=== PATIENT | male | born 1980 | race Caucasian/White ===

== ENCOUNTER 2021-08-15 14:37 | Emergency (ER) | payer MEDICARE, OTHER ==
[~2021-08-15] VITALS: Ht 180.3 cm; Wt 113.4 kg
[2021-08-15] MEDS ORDERED: SEROQUEL300 MG PO (16:00)
[2021-08-15] MEDS ORDERED: SEROQUEL100 MG PO (16:00)
[2021-08-15] MEDS ORDERED: TRAZODONE HCL100 MG PO (16:01)
[2021-08-15] MEDS ORDERED: MINIPRESS5 MG PO (16:01)
[2021-08-15] MEDS ORDERED: OXCARBAZEPINE300 MG PO (16:04)
[2021-08-15] MEDS ORDERED: OXCARBAZEPINE600 MG PO (16:04)
[2021-08-15] MEDS ORDERED: CHLORDIAZEPOXID25 MG PO (16:33)
--- OUTSIDE RECORDS SUMMARY | 2021-08-15 18:26 | XMS ---
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 Care Guidelines exist for the following facilities: [facility] ( 11/28/2018 ) [place] VISIT COUNT (12 MO.) 1 [facility] 1 [facility] [place] TOTAL 2 NOTE: Visits indicate total known visits. ED/UCC VISIT TRACKING (12 MO.) 08/15/2021 14:38 [facility] [place] TYPE: Emergency COMPLAINT: - WITHDRAWALS, MEDICATION REFILL 08/04/2021 08:09 [facility] [place] TYPE: Emergency DIAGNOSES: - Ankle Pain - LEFT ANKLE PAIN - Sprain of unspecified ligament of left ankle, initial encounter - Unspecified fall, initial encounter - Alcohol dependence with withdrawal, unspecified - Moderate persistent asthma with (acute) exacerbation INPATIENT VISIT TRACKING (12 MO.) No inpatient visits to display in this time frame [email or web address]
== END 2021-08-15 17:21 | disposition home or self-care (01) ==
LOC: ED 14:37
DX: F10.239 Alcohol dependence with withdrawal, unspecified (principal); J45.909 Unspecified asthma, uncomplicated; Z88.0 Allergy status to penicillin; Z79.899 Other long term (current) drug therapy
CPT/HCPCS: 96374; 99284-25; J2060

== ENCOUNTER 2021-11-06 10:08 | Emergency (ER) | payer MEDICARE, OTHER ==
[~2021-11-06] VITALS: Ht 180.3 cm; Wt 117.2 kg
[~2021-11-06 10:08] MED LIST: AMOXICILLIN500 MG PO; CHLORDIAZEPOXID25 MG PO; CRUTCHES XX; DIAZEPAM5 MG PO; GABAPENTIN100 MG PO; IBU600 MG PO; MINIPRESS5 MG PO; OXCARBAZEPINE300 MG PO; OXCARBAZEPINE600 MG PO; SEROQUEL100 MG PO; SEROQUEL300 MG PO; TRAZODONE HCL100 MG PO
--- OUTSIDE RECORDS SUMMARY | 2021-11-06 10:10 | XMS ---
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 Care Guidelines exist for the following facilities: [facility] ( 11/28/2018 ) [place] VISIT COUNT (12 MO.) [address] [facility] [address] [place] [address] TOTAL 5 NOTE: Visits indicate total known visits. ED/UCC VISIT TRACKING (12 MO.) 11/06/2021 10:09 [facility] [place] TYPE: Emergency COMPLAINT: - SOB, WHEEZY 11/03/2021 10:23 [facility] [place] TYPE: Emergency COMPLAINT: - L KNEE PAIN 09/06/2021 20:33 [facility] [place] TYPE: Emergency COMPLAINT: - ANKLE INJURY DIAGNOSES: - Other and unspecified overexertion or strenuous movements or postures, initial encounter - Other intermediate (current) drug therapy - Post-traumatic stress disorder, unspecified - Unspecified asthma, uncomplicated - Pain in left ankle and joints of left foot - Sprain of unspecified ligament of left ankle, initial encounter - Allergy status to penicillin 08/15/2021 14:38 [facility] [place] TYPE: Emergency COMPLAINT: - WITHDRAWALS, MEDICATION REFILL DIAGNOSES: - 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 - Alcohol dependence with withdrawal, unspecified - Allergy status to penicillin - Unspecified asthma, uncomplicated 08/04/2021 08:09 [facility] [place] TYPE: Emergency DIAGNOSES: - Sprain of unspecified ligament of left ankle, initial encounter - Ankle Pain - Moderate persistent asthma with (acute) exacerbation - Unspecified fall, initial encounter - LEFT ANKLE PAIN - Alcohol dependence with withdrawal, unspecified INPATIENT VISIT TRACKING (12 MO.) No inpatient visits to display in this time frame [email or web address]
[2021-11-06] MEDS ORDERED: DOXYCYCLINE HY100 MG PO (11:31)
[2021-11-06] MEDS ORDERED: PREDNISONE20 MG PO (11:31)
--- NOTE | 2021-11-07 09:52 | EKG ---
[facility] [address] [place], [place] [address] Signed Normal sinus rhythm Normal ECG No previous ECGs available Confirmed by OKSANA DURON MD ([id number]) on 11/07/2021 9:52:41 AM Electronically Signed By: OKSANA DURON MD 11/07/21 0952 PATIENT NAME: MARTA STEVENS Electrocardiogram DATE OF : 76 PHYSICIAN: OKSANA DURON MD REPORT #: [id number] REPORT IS CONFIDENTIAL AND NOT TO BE RELEASED WITHOUT AUTHORIZATION
== END 2021-11-06 11:47 | disposition home or self-care (01) ==
LOC: ED 10:08
DX: J45.901 Unspecified asthma with (acute) exacerbation (principal); Z88.0 Allergy status to penicillin; Z20.822 Contact with and (suspected) exposure to COVID-19
CPT/HCPCS: 71045; 87502; 93005; 93010; 94640; 99285-25; C9803; J7512; U0003